=== PATIENT | female | born 2000 | race Two or more races ===

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

== ENCOUNTER 2019-10-17 18:34 | Emergency (ER) | payer MEDICAID, OTHER | END 2019-10-17 21:12 | disposition left against medical advice (07) | LOC: ER 18:34 | DX: R51 Headache (principal); Z53.21 Procedure and treatment not carried out due to patient leaving prior to being seen by health care provider ==

== ENCOUNTER 2019-11-23 21:33 | Emergency (ER) | payer MEDICAID ==
[~2019-11-23] VITALS: Ht 157.5 cm; Wt 57.0 kg
[2019-11-24 00:21] VITALS: BP 131/72
== END 2019-11-24 00:27 | disposition home or self-care (01) ==
LOC: ER 21:33
DX: L30.9 Dermatitis, unspecified (principal); F12.10 Cannabis abuse, uncomplicated
CPT/HCPCS: 99281; 99283

== ENCOUNTER 2024-10-30 18:43 | Emergency (ER) | payer MEDICAID, MEDICARE, OTHER ==
[~2024-10-30] VITALS: Ht 157.5 cm; Wt 66.0 kg
[2024-10-30 18:48] VITALS: BP 109/57; TEMP 98.6; O2SAT 100
[2024-10-30 18:49] VITALS: PULSE 76; RESP 18; O2SAT 99
[2024-10-30] MEDS: MAGNESIUM/ALUMINUM HYDROXIDE/SIMETHICONE 30ML UDC PO ONE (21:00)
[2024-10-30] MEDS: DIPHENHYDRAMINE 25MG CAPSULE PO ONE (21:00)
== END 2024-10-30 23:43 | disposition home or self-care (01) ==
LOC: ER 18:43
DX: T18.9XXA Foreign body of alimentary tract, part unspecified, initial encounter (principal); F12.90 Cannabis use, unspecified, uncomplicated; W44.9XXA Unspecified foreign body entering into or through a natural orifice, initial encounter; Y93.89 Activity, other specified; Y92.89 Other specified places as the place of occurrence of the external cause; Y99.8 Other external cause status
CPT/HCPCS: 99285; 70490; 81025; Q0163

== ENCOUNTER 2024-11-19 22:43 | Emergency (ER) | payer OTHER ==
[~2024-11-19] VITALS: Ht 157.5 cm; Wt 64.0 kg
[2024-11-19 23:04] VITALS: BP 109/73; PULSE 104; RESP 18; TEMP 37.2; O2SAT 100
== END 2024-11-20 03:06 | disposition home or self-care (01) ==
LOC: ER 22:43
DX: R51.9 Headache, unspecified (principal); J02.9 Acute pharyngitis, unspecified; Z53.21 Procedure and treatment not carried out due to patient leaving prior to being seen by health care provider